=== PATIENT | male | born 1975 | race Caucasian/White ===

== ENCOUNTER 2022-04-12 15:08 | Emergency (ER) | payer MEDICARE, OTHER ==
[~2022-04-12] VITALS: Ht 182.9 cm; Wt 69.9 kg
[~2022-04-12 15:08] MED LIST: SODIUM CHLORIDE FLUSH 10 ML SYR IV PRN; Z.0.AMANTADINE100 MG; Z.0.ZOLOFT100 MG
[2022-04-12] MEDS ORDERED: SODIUM CHLORIDE 0.9% 1000ML 1,000 ML IV ONE (16:15)
[2022-04-12] MEDS ORDERED: Morphine 4mg INJECTION 4 MG/ML INJ IV ONE (16:30)
[2022-04-12] MEDS ORDERED: ONDANSETRON HCL INJ 2MG/ML 2ML 2 MG/ML VIAL IV ONE (16:30)
[2022-04-12 17:03] LABS: BASOPHILS % 0.4 % (0.0-1.0); EOSINOPHILS # (AUTO) 0.3 (0.0-0.4); EOSINOPHILS % 2.6 % (0.0-6.0); HEMATOCRIT 42.9 % (38.2-49.6); HEMOGLOBIN 14.4 g/dL (14.0-18.0); LYMPHOCYTES # (AUTO) 2.8 (1.0-3.2); LYMPHOCYTES % 26.3 % (18.0-39.1); MEAN CORPUSCULAR HEMOGLOBIN 33.2 pg (28-32); MEAN CORPUSCULAR HGB CONC 33.6 g/dL (31-35); MEAN CORPUSCULAR VOLUME 98.8 fL (81-99); MONOCYTES # (AUTO) 0.8 (0.2-0.8); MONOCYTES % 7.1 % (4.4-11.3); NEUTROPHILS # (AUTO) 6.7 (2.1-6.9); NEUTROPHILS % 63.3 % (38.7-80.0); PLATELET COUNT 362 x10e3/uL (140-360); RED BLOOD COUNT 4.34 x10e6/uL (4.3-5.7); RED CELL DISTRIBUTION WIDTH 12.1 % (11.7-14.4)
[2022-04-12 17:11] LABS: CLARITY,URINE CLEAR (CLEAR); COLOR,URINE YELLOW (YELLOW); KETONES,URINE NEGATIVE (NEGATIVE); LEUKOCYTE ESTERASE ,URINE NEGATIVE (NEGATIVE); NITRITE,URINE NEGATIVE (NEGATIVE); PROTEIN,URINE DIPSTICK 1+ (NEGATIVE); URINE UROBILINOGEN 0.2 mg/dL (0.2 - 1)
[2022-04-12 17:13] LABS: AMPHETAMINES SCREEN,URINE NEGATIVE (NEGATIVE); BENZODIAZEPINES SCREEN,URINE NEGATIVE (NEGATIVE); PHENCYCLIDINE SCREEN,URINE NEGATIVE (NEGATIVE)
[2022-04-12 17:14] LABS: INR 0.87; PARTIAL THROMBOPLASTIN TIME 28.1 seconds (23.8-35.5); PROTHROMBIN TIME 12.7 seconds (11.9-14.5)
[2022-04-12 17:22] LABS: BACTERIA,URINE FEW /HPF; CALCIUM OXALATE CRYSTALS,UR MODERATE (FEW); EPITHELIAL CELLS,URINE FEW /LPF; MUCUS,URINE MANY (RARE); RBC,URINE 0-5 /HPF (0-5); WBC,URINE (MAN) 0-5 /HPF (0-5)
[2022-04-12 17:24] LABS: ALBUMIN 3.9 g/dL (3.5-5.0); ALBUMIN/GLOBULIN RATIO 1.1 (0.8-2.0); ANION GAP 11.9 mmol/L (8-16); CALCIUM 8.9 mg/dL (8.4-10.2); CREATININE, SERUM 0.99 mg/dL (0.72-1.25); POTASSIUM 3.9 mmol/L (3.5-5.1)
[2022-04-12] MEDS ORDERED: METHOCARBAMOL500 MG PO (17:41)
[2022-04-12] MEDS ORDERED: NAPROSYN500 MG PO (17:41)
[2022-04-12 18:00] VITALS: BP 142/102
== END 2022-04-12 18:00 | disposition home or self-care (01) ==
LOC: ER 16:16
DX: R10.9 Unspecified abdominal pain (principal); K57.30 Diverticulosis of large intestine without perforation or abscess without bleeding; F32.A Depression, unspecified; Z87.820 Personal history of traumatic brain injury; R94.31 Abnormal electrocardiogram [ECG] [EKG]
CPT/HCPCS: 36415; 71045; 74176; 80053; 80307; 81001; 83690; 84484; 85025; 85610; 85730; 93005; 99284; J2270; J2405; J7030

== ENCOUNTER 2023-03-01 14:40 | Emergency (ER) | payer MEDICARE, OTHER ==
[~2023-03-01] VITALS: Ht 182.9 cm; Wt 88.7 kg
[~2023-03-01 14:40] MED LIST changes: +METHOCARBAMOL500 MG PO; +NAPROSYN500 MG PO; -SODIUM CHLORIDE FLUSH 10 ML SYR IV PRN; +ULTRAM 50MG50 MG PO
[2023-03-01] MEDS ORDERED: CEPHALEXIN500 MG PO (15:57)
[2023-03-01] MEDS ORDERED: MUPIROCIN22 GM TOP (15:57)
[2023-03-01 16:23] VITALS: O2SAT 94
[2023-03-01] MEDS ORDERED: BACITRACIN ZINC 0.9GM TP ONE (16:30)
[2023-03-01] MEDS ORDERED: FAMOTIDINE20 MG PO (17:30)
== END 2023-03-01 16:23 | disposition home or self-care (01) ==
LOC: FSED 14:50
DX: S61.213A Laceration without foreign body of left middle finger without damage to nail, initial encounter (principal); W26.8XXA Contact with other sharp object(s), not elsewhere classified, initial encounter; Y93.H9 Activity, other involving exterior property and land maintenance, building and construction; Y92.096 Garden or yard of other non-institutional residence as the place of occurrence of the external cause; F32.A Depression, unspecified; Z87.820 Personal history of traumatic brain injury
CPT/HCPCS: 99283

== ENCOUNTER 2023-03-30 17:51 | Emergency (ER) | payer OTHER, MEDICARE ==
[~2023-03-30] VITALS: Ht 182.9 cm; Wt 88.6 kg
[~2023-03-30 17:51] MED LIST changes: +CEPHALEXIN500 MG PO; +FAMOTIDINE20 MG PO; +MUPIROCIN22 GM TOP
[2023-03-30 18:08] VITALS: O2SAT 94
[2023-03-30] MEDS ORDERED: IBUPROFEN200 MG PO (19:14)
[2023-03-30] MEDS ORDERED: TYLENOL325 MG PO (19:14)
== END 2023-03-30 19:37 | disposition home or self-care (01) ==
LOC: FSED 18:01
DX: S52.91XA Unspecified fracture of right forearm, initial encounter for closed fracture (principal); S62.391A Other fracture of second metacarpal bone, left hand, initial encounter for closed fracture; S62.393A Other fracture of third metacarpal bone, left hand, initial encounter for closed fracture; S00.211A Abrasion of right eyelid and periocular area, initial encounter; W18.39XA Other fall on same level, initial encounter; Y92.89 Other specified places as the place of occurrence of the external cause; F32.A Depression, unspecified; K21.9 Gastro-esophageal reflux disease without esophagitis; Z87.820 Personal history of traumatic brain injury
CPT/HCPCS: 99284

== ENCOUNTER 2024-12-28 17:33 | Emergency (ER) | payer MEDICARE, OTHER ==
[~2024-12-28] VITALS: Ht 182.9 cm; Wt 88.0 kg
[~2024-12-28 17:33] MED LIST changes: +IBUPROFEN200 MG PO; +TYLENOL325 MG PO
[2024-12-28] MEDS: ACETAMINOPHEN 325 MG TAB PO ONE (18:55)
[2024-12-28] MEDS ORDERED: IOPAMIDOL 370 MG/ML 100 ML INFUS..BTL INJ ONE (19:10)
[2024-12-28] MEDS: SODIUM CHLORIDE 0.9% 1000ML 1,000 ML IV SCH (19:22)
[2024-12-28 21:00] VITALS: PULSE 83; RESP 16; TEMP 97.7
[2024-12-28 22:27] VITALS: BP 151/99; PULSE 83; RESP 18; TEMP 97.7; O2SAT 97
== END 2024-12-28 22:23 | disposition other institution (70) ==
LOC: FSED 17:39
DX: S22.20XA Unspecified fracture of sternum, initial encounter for closed fracture (principal); S22.43XA Multiple fractures of ribs, bilateral, initial encounter for closed fracture; S40.011A Contusion of right shoulder, initial encounter; S50.311A Abrasion of right elbow, initial encounter; W01.0XXA Fall on same level from slipping, tripping and stumbling without subsequent striking against object, initial encounter; Y93.01 Activity, walking, marching and hiking; Y92.89 Other specified places as the place of occurrence of the external cause; K21.9 Gastro-esophageal reflux disease without esophagitis; F32.A Depression, unspecified; Z87.820 Personal history of traumatic brain injury; Z98.2 Presence of cerebrospinal fluid drainage device
CPT/HCPCS: 71260; 73030; 80053; 82553; 84484; 85025; 93005; 99284; J7030; Q9967